=== PATIENT | female | born 1955 | race African-American/Black ===

== ENCOUNTER 2023-12-13 14:56 | Emergency (ER) | payer MEDICARE ==
[2023-12-13] MEDS ORDERED: Lidocaine 1% w/Epinephrine 1:200K 30 ML VIAL ONE (15:15)
== END 2023-12-13 16:15 | disposition home or self-care (01) ==
LOC: CSHERS 14:56
DX: S31.010A Laceration without foreign body of lower back and pelvis without penetration into retroperitoneum, initial encounter (principal); W45.8XXA Other foreign body or object entering through skin, initial encounter
CPT/HCPCS: 12001; 99282

== ENCOUNTER 2024-09-14 14:17 | Emergency (ER) | payer OTHER | END 2024-09-14 16:59 | disposition home or self-care (01) | LOC: CSHERS 14:17 | DX: S90.411A Abrasion, right great toe, initial encounter (principal); M25.562 Pain in left knee; M79.89 Other specified soft tissue disorders; I10 Essential (primary) hypertension; E11.9 Type 2 diabetes mellitus without complications; K21.9 Gastro-esophageal reflux disease without esophagitis; W01.0XXA Fall on same level from slipping, tripping and stumbling without subsequent striking against object, initial encounter; Y92.481 Parking lot as the place of occurrence of the external cause | CPT/HCPCS: 70450 ==